=== PATIENT | female | born 1955 | race Caucasian/White ===

== ENCOUNTER 2021-05-18 11:38 | Emergency (ER) | payer SELFPAY ==
[~2021-05-18] VITALS: Ht 162 cm; Wt 62.0 kg
[2021-05-18 11:54] VITALS: BP 143/91
[2021-05-18 12:03] LABS: BASOPHILS % (AUTO) 1 % (0-10); EOSINOPHILS # (AUTO) 0.2 10^3/uL (0.0-0.3); EOSINOPHILS % (AUTO) 2 % (0-10); HEMATOCRIT 39 % (35-52); HEMOGLOBIN 12.7 g/dL (11.5-16.0); LYMPHOCYTES # (AUTO) 2.5 10^3/uL (1.0-4.0); LYMPHOCYTES % (AUTO) 35 % (12-44); MEAN CORPUSCULAR HEMOGLOBIN 30 pg (25-34); MEAN CORPUSCULAR HGB CONC 33 g/dL (32-36); MEAN CORPUSCULAR VOLUME 92 fL (80-99); MEAN PLATELET VOLUME 9.1 fL (9.0-12.2); MONOCYTES # (AUTO) 0.8 10^3/uL (0.0-1.0); MONOCYTES % (AUTO) 11 % (0-12); NEUTROPHILS # (AUTO) 3.5 10^3/uL (1.8-7.8); NEUTROPHILS % (AUTO) 50 % (42-75); PLATELET COUNT 406 10^3/uL (130-400)
--- NOTE | 2021-05-18 12:11 | ED Chest Pain ---
General Chief Complaint: Chest Wall Stated Complaint: RIGHT LUNG PAIN Nursing Triage Note: PT TO ED W/ C/O RT SIDED CHEST PAIN ONSET X5 DAYS. REPORTS WAS SEEN BY PCP X3 DAYS AGO, HAD CHEST XRAY ET TOLD "HER LUNG WASN'T DOWN". STATES SHE FEELS LIKE HER LUNG IS "GRUMBLING" ON THAT SIDE. PT REPORTS PAIN IS WORSE WHEN SHE LAYS DOWN. NO OTHER C/O VOICED. Source: patient Exam Limitations: no limitations History of Present Illness Date Seen by Provider: May 18, 2021 Time Seen by Provider: 11:50 Initial Comments This 65-year-old woman presents to the emergency room with complaints of right- sided chest pain for the past 5 days. She was seen on May 16 in the clinic and prescribed nebulizer treatments 3 times daily as well as oral steroids. Pain seems to be somewhat pleuritic in nature and is particularly worse when lying flat and during inspiration. She also is being treated for GERD because of epigastric discomfort and some mild tenderness in the epigastrium. She states she can feel a rumbling in the right lower chest with inspiration. She denies any cough or fever. Chest x-ray performed in the clinic was reportedly unremarkable. Patient states she has not improved with the steroids and inhaled treatments. She states, "I know something is wrong." She sees Kate at the [facility] clinic in [place]. Allergies and Home Medications Allergies Coded Allergies: clindamycin (Verified Allergy, Unknown, 05/18/21) Patient Home Medication List Home Medication List Reviewed: Yes Azithromycin (Azithromycin) 250 Mg Tablet, 250 MG PO UD Prescribed by: ALEX JACK on 05/18/21 1523 Review of Systems Review of Systems Constitutional: no symptoms reported EENTM: No Symptoms Reported Respiratory: See HPI Cardiovascular: No Symptoms Reported Gastrointestinal: See HPI Genitourinary: No Symptoms Reported Musculoskeletal: no symptoms reported Skin: no symptoms reported Psychiatric/Neurological: No Symptoms Reported Endocrine: No Symptoms Reported Hematologic/Lymphatic: No Symptoms Reported Past Csjzzut-Eqztlj-Rixxiw Hx Patient Social History Tobacco Use?: Yes Tobacco type used: Cigarettes Smoking Status: Current Everyday Smoker Use of E-Cig and/or Vaping dev: No Substance use?: No Alcohol Use?: No Pt feels they are or have been: No Past Medical History Surgeries: Yes (Jaw surgery) Physical Exam Vital Signs Vital Signs - First Documented 05/18/21 11:54 Temp 36.6 Pulse 71 Resp 20 B/P (MAP) 143/91 (108) Pulse Ox 95 O2 Delivery Room Air Capillary Refill : Less Than 3 Seconds Height, Weight, BMI Height: '" Weight: lbs. oz. kg; 23.00 BMI Method: General Appearance: WD/WN, Mild Distress HEENT: PERRL/EOMI, Normal ENT Inspection Neck: Normal Inspection; No JVD Respiratory: Lungs Clear, No Accessory Muscle Use, No Respiratory Distress, Decreased Breath Sounds (Diminished breath sounds on the right) Cardiovascular: Regular Rate, Rhythm, No Edema, Normal Peripheral Pulses Gastrointestinal: Soft Extremity: Normal Inspection, No Calf Tenderness, No Pedal Edema Neurologic/Psychiatric: Alert, Oriented x3, No Motor/Sensory Deficits, Normal Mood/Affect Skin: Normal Color, Warm/Dry Progress/Results/Core Measures Results/Orders Lab Results Laboratory Tests Test 05/18/21 11:54 Range/Units White Blood Count 7.0 4.3-11.0 10^3/uL Red Blood Count 4.19 3.80-5.11 10^6/uL Hemoglobin 12.7 11.5-16.0 g/dL Hematocrit 39 35-52 % Mean Corpuscular Volume 92 80-99 fL Mean Corpuscular Hemoglobin 30 25-34 pg Mean Corpuscular Hemoglobin Concent 33 32-36 g/dL Red Cell Distribution Width 12.9 10.0-14.5 % Platelet Count 406 H 130-400 10^3/uL Mean Platelet Volume 9.1 9.0-12.2 fL Immature Granulocyte % (Auto) 0 % Neutrophils (%) (Auto) 50 42-75 % Lymphocytes (%) (Auto) 35 12-44 % Monocytes (%) (Auto) 11 0-12 % Eosinophils (%) (Auto) 2 0-10 % Basophils (%) (Auto) 1 0-10 % Neutrophils # (Auto) 3.5 1.8-7.8 10^3/uL Lymphocytes # (Auto) 2.5 1.0-4.0 10^3/uL Monocytes # (Auto) 0.8 0.0-1.0 10^3/uL Eosinophils # (Auto) 0.2 0.0-0.3 10^3/uL Basophils # (Auto) 0.0 0.0-0.1 10^3/uL Immature Granulocyte # (Auto) 0.0 0.0-0.1 10^3/uL Prothrombin Time 12.4 12.2-14.7 SEC INR Comment 0.9 0.8-1.4 Activated Partial Thromboplast Time 29 24-35 SEC D-Dimer 0.79 H 0.00-0.49 UG/ML Sodium Level 141 135-145 MMOL/L Potassium Level 3.7 3.6-5.0 MMOL/L Chloride Level 104 98-107 MMOL/L Carbon Dioxide Level 24 21-32 MMOL/L Anion Gap 13 5-14 MMOL/L Blood Urea Nitrogen 11 7-18 MG/DL Creatinine 0.72 0.60-1.30 MG/DL Estimat Glomerular Filtration Rate 94 BUN/Creatinine Ratio 15 Glucose Level 86 70-105 MG/DL Calcium Level 10.2 H 8.5-10.1 MG/DL Corrected Calcium 10.0 8.5-10.1 MG/DL Magnesium Level 2.0 1.6-2.4 MG/DL Total Bilirubin 0.4 0.1-1.0 MG/DL Aspartate Amino Transf (AST/SGOT) 48 H 5-34 U/L Alanine Aminotransferase (ALT/SGPT) 67 H 0-55 U/L Alkaline Phosphatase 105 40-136 U/L Myoglobin 28.6 10.0-92.0 NG/ML Troponin I < 0.028 <0.028 NG/ML C-Reactive Protein High Sensitivity 0.91 H 0.00-0.50 MG/DL B-Type Natriuretic Peptide < 10.0 <100.0 PG/ML Total Protein 8.3 H 6.4-8.2 GM/DL Albumin 4.3 3.2-4.5 GM/DL Lipase 40 8-78 U/L My Orders Orders - ALEX MURGUIA MD Cbc With Automated Diff (05/18/21 11:50) Magnesium (05/18/21 11:50) Ekg Tracing (05/18/21 11:50) Comprehensive Metabolic Panel (05/18/21 11:50) Myoglobin Serum (05/18/21 11:50) Protime With Inr (05/18/21 11:50) Partial Thromboplastin Time (05/18/21 11:50) O2 (05/18/21 11:50) Monitor-Rhythm Ecg Trace Only (05/18/21 11:50) Ed Iv/Invasive Line Start (05/18/21 11:50) Bnp [place] (05/18/21 11:50) Troponin I [place] (05/18/21 11:50) Chest Pa/Lat (2 View) (05/18/21 12:03) Hs C Reactive Protein (05/18/21 12:03) Lipase (05/18/21 12:03) Fibrin Degradation Products (05/18/21 12:57) Ct [place] Chest/Noang Abd-Pelv W (05/18/21 13:31) Iohexol Injection (Omnipaque 350 Mg/Ml 1 (05/18/21 14:00) Received Contrast (Hold Metformin- Contr (05/18/21 14:00) Ns (Ivpb) (Sodium Chloride 0.9% Ivpb Bag (05/18/21 14:00) Medications Given in ED Current Medications Medications Dose Ordered Sig/Angle Route Start Time Stop Time Status Last Admin Dose Admin Iohexol 100 ml ONCE ONCE IV 05/18/21 14:00 05/18/21 14:01 DC 05/18/21 14:19 61 ML Sodium Chloride 100 ml ONCE ONCE IV 05/18/21 14:00 05/18/21 14:01 DC 05/18/21 14:19 68 ML Vital Signs/I&O 05/18/21 11:54 Temp 36.6 Pulse 71 Resp 20 B/P (MAP) 143/91 (108) Pulse Ox 95 O2 Delivery Room Air Blood Pressure Mean: 108 Progress Progress Note : Progress Note Patient was seen and evaluated. She declined pain medication. Cardiopulmonary work-up was initially unremarkable. D-dimer was added and was slightly elevated. CT angio of the chest with CT abdomen and pelvis with contrast was obtained. There was some atelectasis versus slight pneumonia in the right lower lung. There was also fatty infiltrate of the liver. The cause of her pain is uncertain but could be related to liver capsule stretching from fatty liver disease and/or early pneumonia. She is going to be treated for both. I discussed the CT imaging with the radiologist. See discharge instructions for discussion with the patient. Initial ECG Impression Date: May 18, 2021 Initial ECG Impression Time: 11:58 Initial ECG Rate: 69 Initial ECG Rhythm: Normal Sinus Comment Sinus rhythm with no ST elevation or depression. No abnormal intervals or axis deviation. PAC noted. Diagnostic Imaging Diagonstic Imaging: Xray Plain Films/CT/US/NM/MRI: chest Comments Chest x-ray viewed by me and report reviewed. See report below: NAME: [facility] REC#: [id number] PT STATUS: [facility] ER : 1955 PHYSICIAN: ALEX MURGUIA MD ADMIT DATE: 05/18/21/ER Draft Date of Exam:05/18/21 CHEST PA/LAT (2 VIEW) Indication: Right-sided chest pain. Comparison: None. Discussion: Two views of the chest were obtained. Normal heart size. No consolidation, pleural fluid, or pneumothorax. No osseous abnormality. Antecedent granulomatous disease is noted, benign. Impression: 1. No acute cardiopulmonary process. Dictated on workstation # [id number] Dict: 05/18/21 1219 Trans: 05/18/21 1233 [facility] [id number] Interpreted by: LYNDA ALTAMIRANO MD Diagonstic Imaging: CT Plain Films/CT/US/NM/MRI: chest, abdomen, pelvis Comments CT viewed by me and report reviewed. Discussed with the radiologist. See report below: NAME: [facility]ANTHI [facility] REC#: [id number] PT STATUS: [facility] ER : 1955 PHYSICIAN: ALEX MURGUIA MD ADMIT DATE: 05/18/21/ER Signed Date of Exam:05/18/21 CT DANUTA CHEST/NOANG ABD-PELV W INDICATION: Chest pain, elevated D-Dimer CTA chest, abdomen and pelvis Thin axial sections through the chest, abdomen and pelvis are obtained following intravenous contrast bolus. Multiplanar MIP images were reconstructed and reviewed. All CT scans use one or more of the following dose optimizing techniques: automated exposure control, MA and/or KvP adjustment based on patient size and exam type or iterative reconstruction. INDICATION: Elevated D-dimer, chest pain. Previous pneumothorax. Previous bilateral pneumothoraces, spontaneous. COMPARISON: I have no priors. CHEST: There is atherosclerotic aortic disease without evidence for dissection, mural hemorrhage, rupture or aneurysm. No focal stenosis. The pulmonary arterial branches are well opacified, widely patent, no PE. Heart size and configuration unremarkable. There are coronary artery atherosclerotic vascular calcifications, chronic. No chest wall pathology. Slight basilar atelectasis as well as some scattered benign parenchymal granulomata noted. There is peripheral and biapical paraseptal cysts. There is no evidence for recurrent pneumothorax at today's exam. There is biapical pleural parenchymal linear scarring as well. No dominant or suspicious lung mass. No lymphadenopathy. ABDOMEN / PELVIS: There is fatty infiltration of the liver with no acute biliary pathology or opaque stone. The pancreas is nonacute. The adrenals and spleen are negative. There is no hydroureteronephrosis. The abdominal aorta is atherosclerotic but patent, nonaneurysmal and nonacute. The uterus, adnexa and urinary bladder unremarkable. There is no evidence for appendicitis or diverticulitis. No volvulus, no bowel obstruction, no perienteric or pericolonic edema. No bowel wall thickening. No focal inflammatory process. No ascites, abscess, hematoma or acute fluid collection. The bony structures nonacute. A right lower pole nonobstructing intrarenal calculus is suspected but could be early aggregation of contrast media. This measures 3 mm. Additional similar findings punctate 1 to 2 mm in the lower pole of the left kidney noted, also indeterminate tiny stones versus contrast aggregation. IMPRESSION: CT CHEST: 1. Some biapical paraseptal cysts but no evidence of pneumothorax or pneumomediastinum. 2. Negative for PE or evidence of acute aortic syndrome. Slight zones of atelectasis and benign granulomatous disease noted. CT ABDOMEN PELVIS: 1. Fatty liver with no acute biliary or pancreatic pathology. 2. Unobstructed nonacute urinary tracts. Indeterminate findings for punctate nonobstructing stones versus accumulation of collecting system contrast media. 3. Nonaneurysmal aortic atherosclerosis with no evidence for abdominal pelvic end organ ischemia. 4. No inflammatory process, ascites, hemorrhage, fluid collection or acute appearing abdominal pelvic pathologies. Dictated by: Dictated on workstation # [id number] Dict: 05/18/21 1421 Trans: 05/18/21 1550 [facility] [id number] Interpreted by: AYLA ORTIZ Electronically signed by: AYLA ORTIZ 05/18/21 2471 Departure Impression Primary Impression: Atypical chest pain Additional Impressions: Right upper quadrant pain Fatty liver disease, nonalcoholic Disposition: 01 HOME, SELF-CARE Condition: Improved Departure-Patient Inst. Decision time for Depature: 15:19 [facility] Primary Care Physician Patient Instructions: Nonalcoholic Fatty Liver Disease, Pneumonia in Adults Add. Discharge Instructions: The exact cause of your lower chest and right upper quadrant abdominal pain is uncertain. Two possible causes include a subtle pneumonia or fatty liver disease stretching of the liver capsule. For possible pneumonia please complete a azithromycin as prescribed. For treatment of fatty liver disease attempt slow weight loss over the next several weeks. Target 2 pounds per week over the next 2 months. Weight your self 2 or 3 times per week to monitor progress. A total of 10 to 20 pounds of weight loss may suffice to resolve the problem. Please also discuss whether or not you should continue your cholesterol medicine with your primary care provider early next week. Make a follow-up appointment as well. To help with weight loss you should eat a low carbohydrate diet and exercise daily. Also work toward quitting smoking as your CT scan shows s ignificant changes associated with emphysema. Call with questions or concerns, and return to the emergency room if you have worsening symptoms despite following these instructions. For pain you may take Tylenol (acetaminophen) up to 1000 mg every 6 hours as needed. Add ibuprofen 400 to 600 mg every 6 hours as needed for additional pain relief. If you use these medications only when really needed and do not exceed recommended doses, you should be able to use them safely. Abstain from any alcohol. All discharge instructions reviewed with patient and/or family. Voiced understanding. Scripts Azithromycin (Azithromycin) 250 Mg Tablet 250 MG PO UD, #6 TAB TAKE 2 TABLETS ON DAY ONE THEN TAKE 1 TABLET DAILY FOR FOUR MORE DAYS Prov: ALEX MURGUIA MD 05/18/21 Copy Copies To 1: KATHLEEN ACEVEDO JOSHUA T MD May 18, 2021 12:11
[2021-05-18 12:14] LABS: INR 0.9 (0.8-1.4); PROTHROMBIN TIME PATIENT 12.4 SEC (12.2-14.7)
[2021-05-18 12:16] LABS: ALBUMIN 4.3 GM/DL (3.2-4.5)
[2021-05-18 12:17] LABS: POTASSIUM 3.7 MMOL/L (3.6-5.0)
[2021-05-18 12:18] LABS: CALCIUM 10.2 MG/DL (8.5-10.1)
[2021-05-18 12:19] LABS: TOTAL PROTEIN 8.3 GM/DL (6.4-8.2)
[2021-05-18 12:21] LABS: BILIRUBIN,TOTAL 0.4 MG/DL (0.1-1.0)
[2021-05-18 12:22] LABS: CREATININE SERUM 0.72 MG/DL (0.60-1.30)
--- NOTE | 2021-05-18 12:33 | Diagnostic Imaging Report ---
Indication: Right-sided chest pain. Comparison: None. Discussion: Two views of the chest were obtained. Normal heart size. No consolidation, pleural fluid, or pneumothorax. No osseous abnormality. Antecedent granulomatous disease is noted, benign. Impression: 1. No acute cardiopulmonary process. Dictated by: Dictated on workstation # [id number]
[2021-05-18] MEDS ORDERED: IOHEXOL 350 MG/ML 100 ML (OMNIPAQUE 350) VIAL IV ONE (14:00)
[2021-05-18] MEDS ORDERED: NS 100 ML (IVPB) BAG IV ONE (14:00)
[2021-05-18] MEDS ORDERED: HOLD METFORMIN - RECEIVED CONTRAST 20 ML VIAL IV SCH (14:00)
--- NOTE | 2021-05-18 14:52 | Diagnostic Imaging Report ---
INDICATION: Chest pain, elevated D-Dimer CTA chest, abdomen and pelvis Thin axial sections through the chest, abdomen and pelvis are obtained following intravenous contrast bolus. Multiplanar MIP images were reconstructed and reviewed. All CT scans use one or more of the following dose optimizing techniques: automated exposure control, MA and/or KvP adjustment based on patient size and exam type or iterative reconstruction. INDICATION: Elevated D-dimer, chest pain. Previous pneumothorax. Previous bilateral pneumothoraces, spontaneous. COMPARISON: I have no priors. CHEST: There is atherosclerotic aortic disease without evidence for dissection, mural hemorrhage, rupture or aneurysm. No focal stenosis. The pulmonary arterial branches are well opacified, widely patent, no PE. Heart size and configuration unremarkable. There are coronary artery atherosclerotic vascular calcifications, chronic. No chest wall pathology. Slight basilar atelectasis as well as some scattered benign parenchymal granulomata noted. There is peripheral and biapical paraseptal cysts. There is no evidence for recurrent pneumothorax at today's exam. There is biapical pleural parenchymal linear scarring as well. No dominant or suspicious lung mass. No lymphadenopathy. ABDOMEN / PELVIS: There is fatty infiltration of the liver with no acute biliary pathology or opaque stone. The pancreas is nonacute. The adrenals and spleen are negative. There is no hydroureteronephrosis. The abdominal aorta is atherosclerotic but patent, nonaneurysmal and nonacute. The uterus, adnexa and urinary bladder unremarkable. There is no evidence for appendicitis or diverticulitis. No volvulus, no bowel obstruction, no perienteric or pericolonic edema. No bowel wall thickening. No focal inflammatory process. No ascites, abscess, hematoma or acute fluid collection. The bony structures nonacute. A right lower pole nonobstructing intrarenal calculus is suspected but could be early aggregation of contrast media. This measures 3 mm. Additional similar findings punctate 1 to 2 mm in the lower pole of the left kidney noted, also indeterminate tiny stones versus contrast aggregation. IMPRESSION: CT CHEST: 1. Some biapical paraseptal cysts but no evidence of pneumothorax or pneumomediastinum. 2. Negative for PE or evidence of acute aortic syndrome. Slight zones of atelectasis and benign granulomatous disease noted. CT ABDOMEN PELVIS: 1. Fatty liver with no acute biliary or pancreatic pathology. 2. Unobstructed nonacute urinary tracts. Indeterminate findings for punctate nonobstructing stones versus accumulation of collecting system contrast media. 3. Nonaneurysmal aortic atherosclerosis with no evidence for abdominal pelvic end organ ischemia. 4. No inflammatory process, ascites, hemorrhage, fluid collection or acute appearing abdominal pelvic pathologies. Dictated by: Dictated on workstation # [id number]
[2021-05-18] MEDS ORDERED: AZIT250T12 PO (15:23)
== END 2021-05-18 15:41 | disposition home or self-care (01) ==
LOC: ER 11:43
DX: R07.89 Other chest pain (principal); R10.11 Right upper quadrant pain; K76.0 Fatty (change of) liver, not elsewhere classified; F17.210 Nicotine dependence, cigarettes, uncomplicated
CPT/HCPCS: 36415; 71046; 71275; 74177; 80053; 83690; 83735; 83874; 83880; 84484; 85025; 85379; 85610; 85730; 86141; 93005